=== PATIENT | female | born 1990 | race Caucasian/White ===

== ENCOUNTER 2017-02-25 12:56 | Emergency (ER) | payer MEDICAID ==
--- NOTE | 2017-02-25 14:14 | ER Document Report ---
ED Medical Screen (RME) - General TRAVEL OUTSIDE OF THE [place] IN LAST 30 DAYS: No <JENNA LABOY - Last Filed: 02/25/17 14:21> <STACEY WARD - Last Filed: 02/25/17 21:10> - General Chief Complaint: Vaginal Bleeding Stated Complaint: VAGINAL BLEEDING Time Seen by Provider: 02/25/17 14:08 Notes: Patient is a 26 year old female presenting to the emergency department for vaginal bleeding. Patient is . Patient states around 11:00 this morning she noticed some spotting. Patient noticed more bright red blood around 12:00. Patient also has some cramping. Patient denies passing any clots or tissue. Patient is A1. Patient had sexual intercourse last night with her spouse. Patient state she had an emergency with her first child and a scheduled with her second child. Patient also had a D&C x1. Patient has no known allergies. (JENNA LABOY) - Related Data Allergies/Adverse Reactions: No Known Allergies Allergy (Verified 02/25/17 13:02) Past Medical History Renal/ Medical History: Denies: Hx Kidney Stones, Hx Peritoneal Dialysis GI Medical History: Denies: Hx Gastroesophageal Reflux Disease, Hx Hiatal Hernia , Hx Ulcer Past Surgical History: Reports: Hx Section, Hx Cholecystectomy - Immunizations Hx Diphtheria, Pertussis, Tetanus Vaccination: Yes - December 2013 <JENNA LABOY - Last Filed: 02/25/17 14:21> Physical Exam <JENNA LABOY - Last Filed: 02/25/17 14:21> <STACEY WARD - Last Filed: 02/25/17 21:10> - Vital signs Vitals: Temp Pulse Resp BP Pulse Ox 98.1 F 90 16 144/81 H 100 02/25/17 13:02 02/25/17 13:02 02/25/17 13:02 02/25/17 13:02 02/25/17 13:02 - Notes Notes: GENERAL: Alert, interacts well. No acute distress. LUNGS: No respiratory distress. ABDOMEN: Soft, non-tender. Non-distended. Bowel sounds present in all 4 quadrants. (JENNA LABOY) Course - Laboratory Result Diagrams: 02/25/17 14:21 02/25/17 14:21 <STACEY WARD - Last Filed: 02/25/17 21:10> - Vital Signs Vital signs: Temp Pulse Resp BP Pulse Ox 98.1 F 79 17 129/82 H 99 02/25/17 13:02 02/25/17 17:19 02/25/17 17:19 02/25/17 17:19 02/25/17 17:19 - Laboratory Laboratory results interpreted by me: 02/25/17 02/25/17 02/25/17 14:21 14:21 14:21 WBC 10.7 H Beta HCG, Quant 3724.30 H Urine Ascorbic Acid 40 H Doctor's Discharge <JENNA LABOY - Last Filed: 02/25/17 14:21> <STACEY WARD - Last Filed: 02/25/17 21:10> - Discharge Clinical Impression: Vaginal bleeding in patient at less than 20 weeks gestation Condition: Stable Disposition: HOME, SELF-CARE Additional Instructions: Return immediately for any new or worsening symptoms. Follow up with BUSINESS SUPPORT PROFESSIONAL, call tomorrow to make followup appointment. Forms: Follow-Up Laboratory Testing Referrals: [facility] [Provider Group] - Follow up as needed Scribe Documentation - Scribe Written by Scribe:: Ector Davis 02/25/17 14:22 acting as scribe for :: Anyi <JENNA LABOY - Last Filed: 02/25/17 14:21>
[2017-02-25 14:42] LABS: ABSOLUTE EOSINOPHILS # (AUTO) 0.1 10^3/uL (0.0-0.6); ABSOLUTE LYMPHOCYTES (AUTO) 3.2 10^3/uL (0.5-4.7); ABSOLUTE MONOCYTES (AUTO) 0.9 10^3/uL (0.1-1.4); ABSOLUTE NEUT (AUTO) 6.5 10^3/uL (1.7-8.2); BASOPHILS % (AUTO) 0.5 % (0-2); EOSINOPHILS % (AUTO) 1.1 % (0-6); HEMATOCRIT 39.2 % (36.0-47.0); HEMOGLOBIN 13.7 g/dL (12.0-15.5); HGB HCT DIFFERENCE 1.9; LYMPHOCYTES % (AUTO) 29.9 % (13-45); MEAN CORPUSCULAR HEMOGLOBIN 30.1 pg (27.0-33.4); MEAN CORPUSCULAR VOLUME 86 fl (80-97); MONOCYTES % (AUTO) 8.1 % (3-13); RED BLOOD COUNT 4.56 10^6/uL (3.72-5.28); RED CELL DISTRIBUTION WIDTH 12.9 % (11.5-14.0); SEGMENTED NEUTROPHILS % (AUTO) 60.4 % (42-78); WHITE BLOOD COUNT 10.7 10^3/uL (4.0-10.5)
[2017-02-25 14:52] LABS: ALANINE AMINOTRANSFERASE 33 U/L (9-52); ALBUMIN 4.5 g/dL (3.5-5.0); ALKALINE PHOSPHATASE 67 U/L (38-126); ANION GAP 11 (5-19); ASPARTATE AMINO TRANSFERASE 25 U/L (14-36); BILIRUBIN,DIRECT 0.3 mg/dL (0.0-0.4); BILIRUBIN,TOTAL 0.5 mg/dL (0.2-1.3); BLOOD UREA NITROGEN 7 mg/dL (7-20); CALCIUM 9.8 mg/dL (8.4-10.2); CARBON DIOXIDE 30 mmol/L (22-30); CHLORIDE 101 mmol/L (98-107); CREATININE RESULT 0.63 mg/dL (0.52-1.25); GLUCOSE 79 mg/dL (75-110); SODIUM 141.7 mmol/L (137-145); TOTAL PROTEIN 8.1 g/dL (6.3-8.2)
--- NOTE | 2017-02-25 16:04 | RADIOLOGY REPORT (SQ) ---
EXAM DESCRIPTION: U/S OB TRANSVAG W/DOPPLER COMPLETED DATE/TIME: 02/25/2017 3:51 pm REASON FOR STUDY: preg, vag bleeding COMPARISON: None. TECHNIQUE: Transvaginal static and realtime grayscale images acquired of the pelvis. Additional ketty cted spectral and color Doppler images recorded. All images stored on PACs. . LIMITATIONS: None. FINDINGS: UTERUS: Heterogeneous area is identified in the uterus which may represent a uterine fibro id measuring 3.1 x 2.9 x 2.4 cm GESTATIONAL SAC: Somewhat irregular gestational sac is identified YOLK SAC: Not visualized POLE: A questionable pole is identified without evidence for cardiac activity. RIGHT ADNEXA: Normal ovary with normal vascular flow. No adnexal free fluid. No adnexal masses. LEFT ADNEXA: Normal ovary with normal vascular flow. No adnexal free fluid. No adnexal masses. FREE FLUID: Fluid is identified at the level of the cervix. OTHER: Beta HCG is 3,274 IMPRESSION: Somewhat irregular gestational sac is identified with a questionable pole without evidence for cardiac activity. CONSIDER F/U BHCG AND/OR ULTRASOUND FOR VERIFICATION of a living gestation. Trimester of : First - 0 to 13 weeks. TECHNICAL DOCUMENTATION: JOB ID: [id number] [employer]- All Rights Reserved
[2017-02-25 16:05] LABS: APPEARANCE,URINE CLEAR; BILIRUBIN,URINE NEGATIVE (NEGATIVE); GLUCOSE, URINE NEGATIVE (NEGATIVE); KETONES,URINE NEGATIVE (NEGATIVE); LEUKOCYTE ESTERASE,URINE NEGATIVE (NEGATIVE); NITRITE,URINE NEGATIVE (NEGATIVE); PROTEIN,URINE NEGATIVE (NEGATIVE); URINE SPECIFIC GRAVITY 1.013; UROBILINOGEN,URINE NEGATIVE mg/dL (<2.0)
--- NOTE | 2017-02-25 16:41 | ER Document Report ---
ED GI/ - General Chief Complaint: Vaginal Bleeding Stated Complaint: VAGINAL BLEEDING Time Seen by Provider: 02/25/17 14:08 Mode of Arrival: Ambulatory Information source: Patient Notes: Patient is a 26-year-old female who presents to the ER today approximately 10 weeks by her own calculations who has had vaginal bleeding since 11 AM today. Patient states she did have sexual intercourse with her last night and is unsure if this is the cause. She states it was dark and then bright red blood, denies any blood clots today. She does admit to some very mild. Like cramping in the lower abdomen. TRAVEL OUTSIDE OF THE [place] IN LAST 30 DAYS: No - Related Data Allergies/Adverse Reactions: No Known Allergies Allergy (Verified 02/25/17 13:02) Past Medical History - General Information source: Patient - Social History Smoking Status: Never Smoker Chew tobacco use (# tins/day): No Frequency of alcohol use: None Drug Abuse: None Family History: None Renal/ Medical History: Denies: Hx Kidney Stones, Hx Peritoneal Dialysis GI Medical History: Denies: Hx Gastroesophageal Reflux Disease, Hx Hiatal Hernia , Hx Ulcer Past Surgical History: Reports: Hx Section, Hx Cholecystectomy - Immunizations Hx Diphtheria, Pertussis, Tetanus Vaccination: Yes - December 2013 Review of Systems - Review of Systems Constitutional: No symptoms reported EENT: No symptoms reported Cardiovascular: No symptoms reported Respiratory: No symptoms reported Gastrointestinal: No symptoms reported Genitourinary: No symptoms reported Female Genitourinary: See HPI Musculoskeletal: No symptoms reported Skin: No symptoms reported Hematologic/Lymphatic: No symptoms reported Neurological/Psychological: No symptoms reported Physical Exam - Vital signs Vitals: Temp Pulse Resp BP Pulse Ox 98.1 F 90 16 144/81 H 100 02/25/17 13:02 02/25/17 13:02 02/25/17 13:02 02/25/17 13:02 02/25/17 13:02 - Notes Notes: PHYSICAL EXAMINATION: GENERAL: Well-appearing and in no acute distress. HEAD: Atraumatic, normocephalic. EYES: Pupils equal round and reactive to light, extraocular movements intact, sclera anicteric, conjunctiva are normal. ENT: ear canals without erythema or foreign body, TMs pearly mcclellan with good bony landmarks, nares patent, oropharynx clear without exudates. Moist mucous membranes. NECK: Normal range of motion, supple without lymphadenopathy LUNGS: CTAB and equal. No wheezes rales or rhonchi. HEART: Regular rate and rhythm without murmurs ABDOMEN: Soft, no tenderness. No guarding, no rebound BACK: no vertebral tenderness, normal ROM GI/: no CVA tenderness EXTREMITIES: Normal range of motion, no pitting edema. No cyanosis. NEUROLOGICAL: Cranial nerves grossly intact. Normal sensory/motor exams. PSYCH: Normal mood, normal affect. SKIN: Warm, Dry, normal turgor, no rashes or lesions noted Course - Re-evaluation Re-evalutation: 02/25/17 16:39 Ultrasound is very vague and does not report any possible age of gestation, reports an irregular intrauterine gestational sac with no pole and unable to verify age of . I will advise the patient follow-up in 2 days for repeat hCG and will print the lab work and order for this as her hCG today is 3000. I will also advise that she follow up with [facility]. - Vital Signs Vital signs: Temp Pulse Resp BP Pulse Ox 98.1 F 90 16 144/81 H 100 02/25/17 13:02 02/25/17 13:02 02/25/17 13:02 02/25/17 13:02 02/25/17 13:02 - Laboratory Result Diagrams: 02/25/17 14:21 02/25/17 14:21 Laboratory results interpreted by me: 02/25/17 02/25/17 02/25/17 14:21 14:21 14:21 WBC 10.7 H Beta HCG, Quant 3724.30 H Urine Ascorbic Acid 40 H Discharge - Discharge Clinical Impression: Vaginal bleeding in patient at less than 20 weeks gestation Condition: Stable Disposition: HOME, SELF-CARE Additional Instructions: Return immediately for any new or worsening symptoms. Follow up with ROOM ATTEND[facility], call tomorrow to make followup appointment. Forms: Follow-Up Laboratory Testing Referrals: [facility] [Provider Group] - Follow up as needed
[2017-02-25 17:20] VITALS: BP 129/82
== END 2017-02-25 17:21 | disposition home or self-care (01) ==
LOC: ER 12:56
DX: O46.91 Antepartum hemorrhage, unspecified, first trimester (principal); Z90.49 Acquired absence of other specified parts of digestive tract
CPT/HCPCS: 36415; 76817; 80053; 81001; 84702; 85025; 86900; 86901; 93976; 99284

== ENCOUNTER 2017-03-01 12:26 | Emergency (ER) | payer OTHER, MEDICAID ==
[2017-03-01 13:29] LABS: ABSOLUTE EOSINOPHILS # (AUTO) 0.1 10^3/uL (0.0-0.6); ABSOLUTE LYMPHOCYTES (AUTO) 2.8 10^3/uL (0.5-4.7); ABSOLUTE MONOCYTES (AUTO) 0.5 10^3/uL (0.1-1.4); APPEARANCE,URINE SLIGHTLY-CLOUDY; BASOPHILS % (AUTO) 0.5 % (0-2); BILIRUBIN,URINE NEGATIVE (NEGATIVE); EOSINOPHILS % (AUTO) 1.8 % (0-6); GLUCOSE, URINE NEGATIVE (NEGATIVE); HEMATOCRIT 37.9 % (36.0-47.0); HEMOGLOBIN 13.1 g/dL (12.0-15.5); HGB HCT DIFFERENCE 1.4; KETONES,URINE NEGATIVE (NEGATIVE); LEUKOCYTE ESTERASE,URINE NEGATIVE (NEGATIVE); LYMPHOCYTES % (AUTO) 32.9 % (13-45); MEAN CORPUSCULAR HGB CONC 34.5 g/dL (32.0-36.0); MEAN CORPUSCULAR VOLUME 87 fl (80-97); MONOCYTES % (AUTO) 5.7 % (3-13); NITRITE,URINE NEGATIVE (NEGATIVE); PROTEIN,URINE NEGATIVE (NEGATIVE); RED BLOOD COUNT 4.37 10^6/uL (3.72-5.28); RED CELL DISTRIBUTION WIDTH 12.7 % (11.5-14.0); SEGMENTED NEUTROPHILS % (AUTO) 59.1 % (42-78); URINE SPECIFIC GRAVITY 1.027; UROBILINOGEN,URINE NEGATIVE mg/dL (<2.0); WHITE BLOOD COUNT 8.5 10^3/uL (4.0-10.5)
[2017-03-01 14:21] LABS: ANION GAP 11 (5-19); BLOOD UREA NITROGEN 10 mg/dL (7-20); CALCIUM 9.2 mg/dL (8.4-10.2); CARBON DIOXIDE 26 mmol/L (22-30); CHLORIDE 104 mmol/L (98-107); CREATININE RESULT 0.64 mg/dL (0.52-1.25); GLUCOSE 103 mg/dL (75-110); POTASSIUM 4.4 mmol/L (3.6-5.0); SODIUM 140.5 mmol/L (137-145)
[2017-03-01 14:32] LABS: ALANINE AMINOTRANSFERASE 38 U/L (9-52); ALBUMIN 4.1 g/dL (3.5-5.0); ALKALINE PHOSPHATASE 69 U/L (38-126); ASPARTATE AMINO TRANSFERASE 33 U/L (14-36); BILIRUBIN,DIRECT 0.3 mg/dL (0.0-0.4); BILIRUBIN,TOTAL 0.4 mg/dL (0.2-1.3); TOTAL PROTEIN 7.6 g/dL (6.3-8.2)
--- NOTE | 2017-03-01 15:12 | RADIOLOGY REPORT (SQ) ---
EXAM DESCRIPTION: U/S OB TRANSVAG W/DOPPLER COMPLETED DATE/TIME: 03/01/2017 3:00 pm REASON FOR STUDY: miscarriage? bleeding a lot COMPARISON: 02/25/2017. TECHNIQUE: Transvaginal static and realtime grayscale images acquired of the pelvis. Additional ketty cted spectral and color Doppler images recorded. All images stored on PACs. [facility]. LIMITATIONS: None. FINDINGS: UTERUS: No visualized intrauterine . Irregular fluid collection located in the c ervical canal. This measures 1.5 cm with internal debris. Small amount fluid within the endometrial cavity. RIGHT ADNEXA: Normal ovary with normal vascular flow. No adnexal free fluid. No adnexal masses. LEFT ADNEXA: Normal ovary with normal vascular flow. No adnexal free fluid. No adnexal masses. FREE FLUID: None. OTHER: No other significant finding. IMPRESSION: NO VISUALIZED INTRAUTERINE OR EXTRAUTERINE . THERE IS AN IRREGULAR FLUID COLLE CTION LOCATED IN THE ENDOCERVICAL CANAL WHICH IS LIKELY PASSAGE OF AN ABNORMAL GESTATIONAL SAC. FIND INGS ARE CONSISTENT WITH IN PROGRESS. TECHNICAL DOCUMENTATION: JOB ID: [id number] [employer]- All Rights Reserved
--- NOTE | 2017-03-01 15:18 | ER Document Report ---
ED GI/ - General Chief Complaint: Vaginal Bleeding Stated Complaint: VAGINAL BLEEDING Time Seen by Provider: 03/01/17 12:42 Mode of Arrival: Ambulatory Information source: Patient Notes: Patient is a 26-year-old female she for P2 who presents to the ER today for possible miscarriage. I did see patient 4 days ago and advised her to come back in 2 days for repeat hCG as she was having vaginal bleeding and cramping at that time. Patient states that she was "too emotional" and could not come back to days ago to get that lab drawn. She states that she "knows what is going on." She has been passing quarter size clots and large amount of blood. She states that she comes in today to get confirmation that she is having a miscarriage and make sure that she does not need a D&C which she has had to have before. She denies any fevers or chills. TRAVEL OUTSIDE OF THE [place] IN LAST 30 DAYS: No - Related Data Allergies/Adverse Reactions: No Known Allergies Allergy (Verified 03/01/17 12:30) Past Medical History - General Information source: Patient Last Menstrual Period: 12/2011 - Social History Smoking Status: Never Smoker Chew tobacco use (# tins/day): No Frequency of alcohol use: None Drug Abuse: None Family History: None Patient has suicidal ideation: No Patient has homicidal ideation: No Renal/ Medical History: Denies: Hx Kidney Stones, Hx Peritoneal Dialysis GI Medical History: Denies: Hx Gastroesophageal Reflux Disease, Hx Hiatal Hernia , Hx Ulcer Past Surgical History: Reports: Hx Section, Hx Cholecystectomy - Immunizations Hx Diphtheria, Pertussis, Tetanus Vaccination: Yes - December 2013 Review of Systems - Review of Systems Constitutional: No symptoms reported EENT: No symptoms reported Cardiovascular: No symptoms reported Respiratory: No symptoms reported Gastrointestinal: No symptoms reported Genitourinary: No symptoms reported Female Genitourinary: See HPI Musculoskeletal: No symptoms reported Skin: No symptoms reported Hematologic/Lymphatic: No symptoms reported Neurological/Psychological: No symptoms reported Physical Exam - Vital signs Vitals: Temp Pulse Resp BP Pulse Ox 98.2 F 80 18 143/83 H 97 03/01/17 12:31 03/01/17 12:31 03/01/17 12:31 03/01/17 12:31 03/01/17 12:31 - Notes Notes: PHYSICAL EXAMINATION: GENERAL: Well-appearing and in no acute distress. HEAD: Atraumatic, normocephalic. EYES: Pupils equal round and reactive to light, extraocular movements intact, sclera anicteric, conjunctiva are normal. NECK: Normal range of motion, supple without lymphadenopathy LUNGS: CTAB and equal. No wheezes rales or rhonchi. HEART: Regular rate and rhythm without murmurs ABDOMEN: Soft, no tenderness. No guarding, no rebound BACK: no vertebral tenderness, normal ROM GI/: no CVA tenderness EXTREMITIES: Normal range of motion, no pitting edema. No cyanosis. NEUROLOGICAL: Cranial nerves grossly intact. Normal sensory/motor exams. PSYCH: Normal mood, normal affect. SKIN: Warm, Dry, normal turgor, no rashes or lesions noted Course - Re-evaluation Re-evalutation: 03/01/17 15:16 Serum hCG has reduced from 3300. Transvaginal ultrasound today for reports passage in progress of buttocks of conception, and nothing intrauterine or extrauterine except for in the cervix. Patient seems to be performing miscarriage on her own. Her vital signs are all normal today. 03/01/17 15:17 - Vital Signs Vital signs: Temp Pulse Resp BP Pulse Ox 98.2 F 80 16 143/83 H 97 03/01/17 12:31 03/01/17 12:31 03/01/17 13:27 03/01/17 12:31 03/01/17 12:31 - Laboratory Result Diagrams: 03/01/17 12:55 03/01/17 12:55 Laboratory results interpreted by me: 03/01/17 03/01/17 12:55 12:55 Beta HCG, Quant 315.61 H Urine Blood SMALL H Urine Ascorbic Acid 40 H Discharge - Discharge Clinical Impression: Miscarriage Condition: Stable Disposition: HOME, SELF-CARE Additional Instructions: Return immediately for any new or worsening symptoms. Follow up with primary care provider, call tomorrow to make followup appointment.
[2017-03-01 15:36] VITALS: BP 123/92
== END 2017-03-01 15:36 | disposition home or self-care (01) ==
LOC: ER 12:26
DX: O03.9 Complete or unspecified spontaneous abortion without complication (principal); N93.9 Abnormal uterine and vaginal bleeding, unspecified
CPT/HCPCS: 36415; 76817; 80053; 81001; 84702; 85025; 86900; 86901; 93976; 99284

== ENCOUNTER 2018-03-16 05:04 | Emergency (ER) | payer MEDICAID, OTHER ==
[2018-03-16 06:07] LABS: APPEARANCE,URINE CLEAR; BILIRUBIN,URINE MODERATE (NEGATIVE); COLOR,URINE ORANGE; GLUCOSE, URINE NEGATIVE (NEGATIVE); KETONES,URINE 100 mg/dL (NEGATIVE); PROTEIN,URINE 100 mg/dL (NEGATIVE); URINE SPECIFIC GRAVITY 1.025
[2018-03-16 06:08] LABS: LEUKOCYTE ESTERASE,URINE LARGE (NEGATIVE); NITRITE,URINE POSITIVE (NEGATIVE)
[2018-03-16 08:08] VITALS: BP 134/82
--- NOTE | 2018-03-16 08:13 | ER Document Report ---
HPI - HPI Patient complains to provider of: URINARY FREQUENCY Onset: Other - 3 days Quality of pain: Pressure Severity: Mild Pain Level: 2 Context: pt presents with c/o UTI s/s (frequency, hesitancy) for 3 days. Reports history of UTI's whenever she is . Denies f/n/v/d. Reports she has a follow up OB appointment. Associated Symptoms: None. denies: Fever Exacerbated by: Denies Relieved by: Denies Similar symptoms previously: No Recently seen / treated by doctor: No - REPRODUCTIVE LMP: 01/21 7 weeks Reproductive: DENIES: : Past Medical History - General Information source: Patient Last Menstrual Period: 7 weeks - Social History Smoking Status: Unknown if Ever Smoked Cigarette use (# per day): No Frequency of alcohol use: None Drug Abuse: None Occupation: [employer] Lives with: Family Family History: None Patient has suicidal ideation: No Patient has homicidal ideation: No - Medical History Medical History: Negative Renal/ Medical History: Denies: Hx Kidney Stones, Hx Peritoneal Dialysis GI Medical History: Denies: Hx Gastroesophageal Reflux Disease, Hx Hiatal Hernia , Hx Ulcer Past Surgical History: Reports: Hx Section, Hx Cholecystectomy - Immunizations Hx Diphtheria, Pertussis, Tetanus Vaccination: Yes - December 2013 Vertical Provider Document - CONSTITUTIONAL Agree With Documented VS: Yes Exam Limitations: No Limitations General Appearance: WD/WN, No Apparent Distress - INFECTION CONTROL TRAVEL OUTSIDE OF THE [place] IN LAST 30 DAYS: No - HEENT HEENT: Atraumatic - NECK Neck: Supple - RESPIRATORY Respiratory: Breath Sounds Normal - GI/ABDOMEN Gastrointestinal: Abdomen Soft - BACK Back: Normal Inspection. negative: CVA Tenderness-Right, CVA Tenderness-Left - MUSCULOSKELETAL/EXTREMETIES Musculoskeletal/Extremeties: MAEW, FROM - NEURO Level of Consciousness: Awake, Alert, Appropriate Motor/Sensory: No Motor Deficit - DERM Integumentary: Warm, Dry Course - Vital Signs Vital signs: Temp Pulse Resp BP Pulse Ox 98.4 F 83 16 134/82 H 98 03/16/18 08:07 03/16/18 08:07 03/16/18 05:11 03/16/18 08:07 03/16/18 08:07 - Laboratory Laboratory results interpreted by me: 03/16/18 05:30 Urine Protein 100 H Urine Ketones 100 H Urine Nitrite POSITIVE H Urine Bilirubin MODERATE H Urine Urobilinogen 2.0 H Ur Leukocyte Esterase LARGE H Discharge - Discharge Clinical Impression: Dysuria UTI (urinary tract infection) Qualifiers: Urinary tract infection type: site unspecified Hematuria presence: without hematuria Qualified Code(s): N39.0 - Urinary tract infection, site not specified Condition: Stable Disposition: HOME, SELF-CARE Instructions: Cephalexin ([facility]), Urinary Tract Infection ([facility]) Additional Instructions: *You have been evaluated for pain while voiding, UTI *Take medication as prescribed *Push fluids *Follow up with your RECLAMATION FURNACE OPERATOR within 5 days for rechk *Plan urine recheck in one week *Return to ED for worsening condition, changes, needs, concerns, fever Prescriptions: Cephalexin Monohydrate [Keflex 250 Mg Capsule] 250 mg PO QID #20 capsule
== END 2018-03-16 08:17 | disposition home or self-care (01) ==
LOC: ER 05:04
DX: O23.41 Unspecified infection of urinary tract in pregnancy, first trimester (principal); R35.0 Frequency of micturition; Z87.440 Personal history of urinary (tract) infections; Z3A.01 Less than 8 weeks gestation of pregnancy
CPT/HCPCS: 81001; 87086; 87088; 87186; 99283

== ENCOUNTER 2018-06-20 12:18 | Emergency (ER) | payer SELFPAY ==
[2018-06-20 12:26] VITALS: BP 123/78
[2018-06-20 13:15] LABS: APPEARANCE,URINE SLIGHTLY-CLOUDY; BILIRUBIN,URINE NEGATIVE (NEGATIVE); COLOR,URINE YELLOW; GLUCOSE, URINE NEGATIVE (NEGATIVE); KETONES,URINE NEGATIVE (NEGATIVE); LEUKOCYTE ESTERASE,URINE LARGE (NEGATIVE); NITRITE,URINE NEGATIVE (NEGATIVE); PROTEIN,URINE NEGATIVE (NEGATIVE); URINE SPECIFIC GRAVITY 1.013; UROBILINOGEN,URINE NEGATIVE mg/dL (<2.0)
--- NOTE | 2018-06-20 13:37 | ER Document Report ---
HPI - HPI Patient complains to provider of: Urinary tract symptoms Onset: Yesterday Onset/Duration: Sudden, Worse Quality of pain: Fullness, Pressure, Sharp Severity: Moderate Pain Level: 3 Context: Patient is a history of urinary tract infections and she has a same pill is that she always does with urgency hesitancy and just pressure. Associated Symptoms: None Exacerbated by: Denies Relieved by: Denies Similar symptoms previously: Yes Recently seen / treated by doctor: Yes Notes: Patient is a well-nourished well-developed 27-year-old female comes emergency room complaining of urinary tract symptoms. She describes urinary tract infection very well. Past history those noted that patient has had a recent miscarriage 2 weeks ago. She tells me that everything with that has been fine she is gotten over all the problems with the spotting and the bleeding and she is not here for any thing like that. She denies any other medical problems. But does state that she has a history of urinary tract infections. - ROS ROS below otherwise negative: Yes - CONSTITUTIONAL Constitutional: DENIES: Fever, Chills - EENT EENT: DENIES: Sore Throat, Ear Pain, Nasal Drainage-Clear, Nasal Drainage- Purulent, Congestion, Eye problems - NEURO Neurology: DENIES: Headache, Weakness, Vision blurred, Dizzinesss / Vertigo - CARDIOVASCULAR Cardiovascular: DENIES: Chest pain - RESPIRATORY Respiratory: DENIES: Trouble Breathing, Coughing - GASTROINTESTINAL Gastrointestinal: DENIES: Abdominal Pain, Nausea, Patient vomiting, Diarrhea, Constipation, Black / Bloody Stools - URINARY Urinary: REPORTS: Dysuria, Urgency, Frequency - REPRODUCTIVE Reproductive: DENIES: : - DERM Skin Color: Normal Past Medical History - General Information source: Patient - Social History Smoking Status: Never Smoker Cigarette use (# per day): No Chew tobacco use (# tins/day): No Smoking Education Provided: No Frequency of alcohol use: Occasional Drug Abuse: None Lives with: Family Family History: None, Reviewed & Not Pertinent Patient has suicidal ideation: No Patient has homicidal ideation: No Renal/ Medical History: Denies: Hx Kidney Stones, Hx Peritoneal Dialysis GI Medical History: Denies: Hx Gastroesophageal Reflux Disease, Hx Hiatal Hernia , Hx Ulcer Past Surgical History: Reports: Hx Section, Hx Cholecystectomy, Hx Genitourinary Surgery - D&E - Immunizations Hx Diphtheria, Pertussis, Tetanus Vaccination: Yes - December 2013 Vertical Provider Document - CONSTITUTIONAL Agree With Documented VS: Yes Exam Limitations: No Limitations General Appearance: WD/WN, No Apparent Distress - INFECTION CONTROL TRAVEL OUTSIDE OF THE [place] IN LAST 30 DAYS: No - HEENT HEENT: Atraumatic, Normocephalic - RESPIRATORY Respiratory: Breath Sounds Normal - CARDIOVASCULAR Cardiovascular: Regular Rate, Regular Rhythm, No Murmur - GI/ABDOMEN Gastrointestinal: Abdomen Soft, Normal Bowel Sounds. negative: Abdomen Tender - REPRODUCTIVE Notes: Patient had miscarriage 2 weeks ago. From what patient tells me she had 3 miscarriages in the past that she has had 2 live births so she is A3 physical examination also shows patient in supine position palpation of the bladder area shows tenderness. The rest of the abdominal exam is negative. She has bowel sounds all 4 quads and nontender throughout with the exception of suprapubic tenderness that we have already discussed. - NEURO Level of Consciousness: Awake, Alert Course - Re-evaluation Re-evalutation: 06/20/18 13:37 I did discuss with patient the history of her recent which was spontaneous. She is over being upset at this point understands she has had 2 others in the past. She states she has no concerns about that at this point she just knows what a urinary tract infection feels like because she has had them in the past and is what she wants us to look at today. - Vital Signs Vital signs: Temp Pulse Resp BP Pulse Ox 98.5 F 65 123/78 100 06/20/18 12:24 06/20/18 12:24 06/20/18 12:24 06/20/18 12:24 - Laboratory Laboratory results interpreted by me: 06/20/18 12:30 Ur Leukocyte Esterase LARGE H Discharge - Discharge Clinical Impression: Urinary tract infection Qualifiers: Urinary tract infection type: acute cystitis Hematuria presence: without hematuria Qualified Code(s): N30.00 - Acute cystitis without hematuria Condition: Stable Disposition: HOME, SELF-CARE Instructions: Trimethoprim-Sulfa ([facility]), Urinary Tract Infection ([facility]) Additional Instructions: Home and rest. Medication as prescribed. As we discussed I am also writing you a Diflucan pill this will help stop any kind of a yeast infection from developing. Continue increasing her fluids but avoid foods and drinks high in sugar content. Should you have any concerns or problems please return to ER for recheck. Prescriptions: Fluconazole [Diflucan] 150 mg PO ONCE PRN #1 tablet PRN Reason: Sulfamethoxazole/Trimethoprim [Bactrim Ds Tablet] 1 each PO BID 5 Days #10 tablet Referrals: [facility] [NO LOCAL MD] - Follow up as needed
== END 2018-06-20 13:40 | disposition home or self-care (01) ==
LOC: ER 12:18
DX: N30.00 Acute cystitis without hematuria (principal); Z87.59 Personal history of other complications of pregnancy, childbirth and the puerperium
CPT/HCPCS: 81001; 87086; 87088; 87186; 99283

== ENCOUNTER 2019-10-01 07:36 | Inpatient (IN) | payer MEDICAID ==
[2019-10-01] MEDS ORDERED: CEFAZOLIN 1 GM/D5W RTU 1 GM/50 ML RTUPB IV PRN (08:02)
[2019-10-01] MEDS ORDERED: RINGERS SOLUTION,LACTATED 1,000 ML IV PRN ×3 (08:03→12:26)
[2019-10-01 08:33] LABS: HEMATOCRIT 34.6 % (36.0-47.0); HEMOGLOBIN 12.2 g/dL (12.0-15.5); MEAN CORPUSCULAR HEMOGLOBIN 29.2 pg (27.0-33.4); MEAN CORPUSCULAR HGB CONC 35.3 g/dL (32.0-36.0); MEAN CORPUSCULAR VOLUME 83 fl (80-97); RED BLOOD COUNT 4.18 10^6/uL (3.72-5.28); RED CELL DISTRIBUTION WIDTH 13.9 % (11.5-14.0); WHITE BLOOD COUNT 8.2 10^3/uL (4.0-10.5)
[2019-10-01 08:55] LABS: APPEARANCE,URINE SLIGHTLY-CLOUDY; BILIRUBIN,URINE NEGATIVE (NEGATIVE); COLOR,URINE YELLOW; GLUCOSE, URINE NEGATIVE (NEGATIVE); KETONES,URINE NEGATIVE (NEGATIVE); LEUKOCYTE ESTERASE,URINE TRACE (NEGATIVE); NITRITE,URINE NEGATIVE (NEGATIVE); PROTEIN,URINE NEGATIVE (NEGATIVE); URINE SPECIFIC GRAVITY 1.012; UROBILINOGEN,URINE NEGATIVE mg/dL (<2.0)
[2019-10-01 08:58] LABS: URINE AMPHETAMINES SCREEN NEGATIVE; URINE BARBITURATES SCREEN NEGATIVE; URINE BENZODIAZEPINES SCREEN NEGATIVE; URINE COCAINE SCREEN NEGATIVE; URINE MARIJUANA (THC) SCREEN NEGATIVE; URINE METHADONE SCREEN NEGATIVE; URINE PHENCYCLIDINE SCREEN NEGATIVE
[2019-10-01 08:59] LABS: PLATELET COUNT 113 10^3/uL (150-450)
[2019-10-01] MEDS ORDERED: MIDAZOLAM 2 MG/2 ML INJ ONE (10:49)
[2019-10-01] MEDS ORDERED: MORPHINE SULFATE 10 MG/ML INJ ONE ×2 (10:49→13:32)
[2019-10-01] MEDS ORDERED: OXYTOCIN/NORMAL SALINE 20 UNIT/1,000 ML RTUINJ ONE (10:49)
[2019-10-01] MEDS ORDERED: FENTANYL CITRATE INJ/PF 100 MCG/2 ML AMPUL ONE (10:49)
[2019-10-01] MEDS ORDERED: OXYTOCIN 10 UNIT/ML VIAL ONE (10:49)
[2019-10-01] MEDS ORDERED: ONDANSETRON HCL INJ/PF 4 MG/2 ML SDV ONE (10:50)
[2019-10-01] MEDS ORDERED: PROMETHAZINE HCL INJ 25 MG/1 ML VIAL IV PRN ×3 (11:24→12:26)
[2019-10-01] MEDS ORDERED: DIPHENHYDRAMINE HCL 50 MG/ML VIAL IV PRN (11:24)
[2019-10-01] MEDS ORDERED: MEPERIDINE HCL/PF INJ 25 MG/1 ML DISP.SYRIN IV PRN (11:24)
[2019-10-01] MEDS ORDERED: FENTANYL CITRATE INJ/PF 100 MCG/2 ML AMPUL IV PRN ×3 (11:24)
[2019-10-01] MEDS ORDERED: MORPHINE SULFATE 10 MG/ML INJ IV PRN ×2 (11:24→12:26)
[2019-10-01] MEDS ORDERED: CEFAZOLIN INJ 1 GM VIAL ONE (11:31)
[2019-10-01] MEDS ORDERED: MEASLES,MUMPS&RUBELLA VACC/PF 0.5 ML VIAL SUBCUT PRN (12:26)
[2019-10-01] MEDS ORDERED: SIMETHICONE 80 MG TAB.CHEW PO PRN (12:26)
[2019-10-01] MEDS ORDERED: OXYCODONE-ACETAMINOPHEN 5-325 MG TABLET PO PRN (12:26)
[2019-10-01] MEDS ORDERED: ACETAMINOPHEN 1,000 MG/100 ML RTUPB IV PRN (12:26)
[2019-10-01] MEDS ORDERED: ACETAMINOPHEN 325 MG TABLET PO PRN (12:26)
[2019-10-01] MEDS ORDERED: OXYTOCIN/NORMAL SALINE 20 UNIT/1,000 ML RTUINJ IV PRN (12:26)
[2019-10-01] MEDS ORDERED: DIPH/PERTUSS(ACELL)/TETANUS VAC/PF 0.5 ML SYR (>=10YO) IM PRN (12:26)
--- NOTE | 2019-10-01 12:31 | Operative Report ---
Operative Report DATE OF SURGERY: 10/01/19 PREOPERATIVE DIAGNOSIS: IUP @ 39 wks, previous c/section x 2 POSTOPERATIVE DIAGNOSIS: same OPERATION: repeat c/section SURGEON: SANJIV DONAHUE [employer] TEAM MEMBER: JANEL DILLON ANESTHESIA: Spinal COMPLICATIONS: none ESTIMATED BLOOD LOSS: 750 cc INTRAOPERATIVE FINDINGS: male infant in cephalic presentation PROCEDURE: PROCEDURE IN DETAIL: The patient was taken to the operating room, prepared and draped in a normal sterile fashion in a supine position with a leftward tilt. A transverse skin incision was made with a scalpel and carried through to the underlying layer of fascia with the same scalpel. The fascia was excised in the midline and extended laterally with Rosalinda. The fascia was then dissected from the rectus muscle sharply with Rosalinda and the rectus muscle was divided and the peritoneal cavity was entered sharply with the same Metzenbaum. With good visualization of the bladder and the uterus the bladder blade was inserted. The hysterotomy was nicked with a scalpel and extended laterally with surgeon finger fraction. The was then delivered atraumatically. The nose and mouth were suctioned with a suction bulb, the cord was clamped and cut and handed off to awaiting pediatricians. Cord blood was collected. The placenta was removed manually. The uterus was exteriorized and cleared of clots and debris. The hysterotomy was closed with 0 Monocryl in a running, locked fashion. A second layer of the same suture was used to imbricate to ensure hemostasis. The uterus was returned to the abdomen and peritoneal cavity was cleared of clots and debris. The rectus muscle and peritoneum were repaired with mattress stitch of 2-0 Chromic. The fascia was closed with 0-Vicryl. The subcutaneous layer was closed with plain catgut and the skin was closed with 4-0 Vicryl. The patient tolerated the procedure well. Sponge, lap, and needle counts correct x2 and the patient was taken to recovery in stable condition.
[2019-10-01] MEDS ORDERED: KETOROLAC TROMETHAMINE INJ/PF 30 MG/1 ML SDV ONE (12:52)
[2019-10-01] MEDS ORDERED: ACETAMINOPHEN 1,000 MG/100 ML RTUPB IV ONE (12:52)
[2019-10-01] MEDS: KETOROLAC TROMETHAMINE INJ/PF 30 MG/1 ML SDV IV SCH ×2 (13:00→22:03)
[2019-10-01] MEDS: DOCUSATE SODIUM 100 MG CAPSULE PO SCH (17:16)
[2019-10-01] MEDS: OXYCODONE-ACETAMINOPHEN 5-325 MG TABLET PO PRN ×2 (17:16→22:04)
[2019-10-02] MEDS: OXYCODONE-ACETAMINOPHEN 5-325 MG TABLET PO PRN ×3 (04:13→20:13)
[2019-10-02] MEDS: KETOROLAC TROMETHAMINE INJ/PF 30 MG/1 ML SDV IV SCH (05:09)
[2019-10-02 08:32] LABS: HEMATOCRIT 34.1 % (36.0-47.0); HEMOGLOBIN 11.5 g/dL (12.0-15.5); MEAN CORPUSCULAR HEMOGLOBIN 28.5 pg (27.0-33.4); MEAN CORPUSCULAR HGB CONC 33.7 g/dL (32.0-36.0); MEAN CORPUSCULAR VOLUME 85 fl (80-97); PLATELET COUNT 106 10^3/uL (150-450); RED BLOOD COUNT 4.04 10^6/uL (3.72-5.28); WHITE BLOOD COUNT 10.1 10^3/uL (4.0-10.5)
[2019-10-02] MEDS: DOCUSATE SODIUM 100 MG CAPSULE PO SCH ×2 (09:48→17:45)
[2019-10-02] MEDS: PRENATAL VITAMIN W DHA CAPSULE PO SCH (09:48)
--- NOTE | 2019-10-02 11:29 | PDOC PROGRESS REPORT ---
Subjective-OB Progress Note for:: 10/02/19 - POD #1, doing well, UOB, voiding, s/p Rpt C- section. Physical Exam (OB) Vital Signs: Temp Pulse Resp BP Pulse Ox 98.0 F 79 20 123/85 98 10/02/19 08:00 10/02/19 08:00 10/02/19 08:00 10/02/19 08:00 10/02/19 08:00 Intake & Output 10/01/19 10/02/19 10/03/19 06:59 06:59 06:59 Intake Total 3180 Output Total 1850 Balance 1330 - General General Appearance: Appears well, Alert In distress: None - Dressing Removed: No Incision: Dressing Closure Type: opsite - Lochia Lochia Amount: Small 10-25 ml Lochia Color: Rubra/Red - Abdomen Description: Soft Hernia Present: No Fundal Description: Firm, Midline Fundal Height: u/u - u/2 - Respiratory Respiratory Status: No respiratory distress - Abdominal Distension: No distension Tenderness: Nontender - Genitourinary Genitourinary Note: voiding - Extremities Upper extremity: Edema Lower extremities: Edema - Neurological Cognition: Normal Orientation: AAOx4 - Psychological Associated symptoms: Normal affect, Normal mood - Skin Skin Temperature: Warm Skin Moisture: Dry Objective-Diagnostic Laboratory: 10/02/19 07:56 10/02/19 07:56 WBC 10.1 RBC 4.04 Hgb 11.5 L Hct 34.1 L MCV 85 MCH 28.5 MCHC 33.7 RDW 14.0 Plt Count 106 L Assessment and Plan(PN) - Assessment and Plan (2) Delivery by elective caesarean section Is this a current diagnosis for this admission?: Yes (3) Qualifiers: Weeks of gestation: 39 weeks Qualified Code(s): Z3A.39 - 39 weeks gestation of Is this a current diagnosis for this admission?: Yes Plan:: Routine Post Op and PP orders, ambulation encouraged - Time Spent with Patient Time with patient: Less than 15 minutes - Disposition Anticipated Discharge: Home Within: within 48 hours
[2019-10-02] MEDS: IBUPROFEN 800 MG TABLET PO SCH ×2 (12:47→17:45)
[2019-10-03] MEDS: IBUPROFEN 800 MG TABLET PO SCH ×3 (00:45→12:15)
[2019-10-03] MEDS: DOCUSATE SODIUM 100 MG CAPSULE PO SCH (09:16)
[2019-10-03] MEDS: PRENATAL VITAMIN W DHA CAPSULE PO SCH (09:16)
--- NOTE | 2019-10-03 16:12 | PDOC DISCHARGE SUMMARY ---
Impression - Admit/DC Date/PCP Admission Date/Primary Care Provider: 10/01/19 07:36 SANJIV DONAHUE MD Discharge Date: 10/03/19 - Discharge Diagnosis (1) Normal course Is this a current diagnosis for this admission?: Yes (2) Status post repeat low transverse section Is this a current diagnosis for this admission?: Yes (3) Is this a current diagnosis for this admission?: Yes - Additional Information Resuscitation Status: Full Code Discharge Diet: As Tolerated, Regular Discharge Activity: Activity As Tolerated, Balance Activity w/Rest, No Driving, No Lifting Over 10 Pounds, Pelvic Rest, Slowly Increase Activity, No tub bath, Walk Frequently Referrals: SANJIV DONAHUE MD [Primary Care Provider] - Prescriptions: Oxycodone HCl/Acetaminophen [Percocet 5-325 mg Tablet] 2 tab PO Q4HP PRN #20 tablet PRN Reason: For Pain Scale 3-5 Ibuprofen [Motrin 800 mg Tablet] 800 mg PO Q8HP PRN #20 tablet PRN Reason: For Pain Scale 1-3 Docusate Sodium [Colace 100 mg Capsule] 100 mg PO BID #60 capsule Home Medications: Pnv with Ca,No.71/Iron/FA [Prenaplus Tablet] 1 tab PO DAILY 01/20/14 Docusate Sodium [Colace 100 mg Capsule] 100 mg PO BID #60 capsule 10/03/19 Ibuprofen [Motrin 800 mg Tablet] 800 mg PO Q8HP PRN #20 tablet 10/03/19 Oxycodone HCl/Acetaminophen [Percocet 5-325 mg Tablet] 2 tab PO Q4HP PRN #20 tablet 10/03/19 Results Laboratory Results: WBC 10.1 10^3/uL (4.0-10.5) 10/02/19 07:56 RBC 4.04 10^6/uL (3.72-5.28) 10/02/19 07:56 Hgb 11.5 g/dL (12.0-15.5) L 10/02/19 07:56 Hct 34.1 % (36.0-47.0) L 10/02/19 07:56 MCV 85 fl (80-97) 10/02/19 07:56 MCH 28.5 pg (27.0-33.4) 10/02/19 07:56 MCHC 33.7 g/dL (32.0-36.0) 10/02/19 07:56 RDW 14.0 % (11.5-14.0) 10/02/19 07:56 Plt Count 106 10^3/uL (150-450) L 02 07:56 Urine Color YELLOW 10/01/19 08:00 Urine Appearance SLIGHTLY-CLOUDY 10/01/19 08:00 Urine pH 6.0 (5.0-9.0) 10/01/19 08:00 Ur Specific [place] 1.012 10/01/19 08:00 Urine Protein NEGATIVE mg/dL (NEGATIVE) 10/01/19 08:00 Urine Glucose (UA) NEGATIVE mg/dL (NEGATIVE) 10/01/19 08:00 Urine Ketones NEGATIVE mg/dL (NEGATIVE) 10/01/19 08:00 Urine Blood NEGATIVE (NEGATIVE) 10/01/19 08:00 Urine Nitrite NEGATIVE (NEGATIVE) 10/01/19 08:00 Urine Bilirubin NEGATIVE (NEGATIVE) 10/01/19 08:00 Urine Urobilinogen NEGATIVE mg/dL (<2.0) 10/01/19 08:00 Ur Leukocyte Esterase TRACE (NEGATIVE) H 10/01/19 08:00 Urine WBC (Auto) 4 /HPF 10/01/19 08:00 Urine Bacteria (Auto) TRACE /HPF 10/01/19 08:00 Squamous Epi Cells Auto 2 /HPF 10/01/19 08:00 Urine Mucus (Auto) OCC /LPF 10/01/19 08:00 Urine Ascorbic Acid NEGATIVE (NEGATIVE) 10/01/19 08:00 Urine Opiates Screen NEGATIVE 10/01/19 08:00 Urine Methadone Screen NEGATIVE 10/01/19 08:00 Ur Barbiturates Screen NEGATIVE 10/01/19 08:00 Ur Phencyclidine Scrn NEGATIVE 10/01/19 08:00 Ur Amphetamines Screen NEGATIVE 10/01/19 08:00 U Benzodiazepines Scrn NEGATIVE 10/01/19 08:00 Urine Cocaine Screen NEGATIVE 10/01/19 08:00 U Marijuana (THC) Screen NEGATIVE 10/01/19 08:00 Blood Type A POSITIVE 10/01/19 08:14 Antibody Screen NEGATIVE 10/01/19 08:14
[2019-10-03 16:32] VITALS: BP 128/88
== END 2019-10-03 16:55 | disposition home or self-care (01) | DRG 788 ==
LOC: 2S 07:36
PROVIDERS: ADMIT Obstetrics & Gynecology; ATTEND Obstetrics & Gynecology
PROC: 10D00Z1 Extraction of Products of Conception, Low, Open Approach (ICD-10-PCS; principal; 2019-10-01 10:30)
DX: O34.211 Maternal care for low transverse scar from previous cesarean delivery (principal); Z3A.39 39 weeks gestation of pregnancy; Z37.0 Single live birth
CPT/HCPCS: 1961; 36415; 80307; 81001; 85027; 86850; 86900; 86901; 94760; 94799; J0131; J0690; J1885; J2250; J2270; J2405; J2590; J3010; J3490; J7120